=== PATIENT | male | born 1945 | race African-American/Black ===

== ENCOUNTER 2017-06-02 05:40 | Inpatient (IN) | payer MEDICARE, MEDICAID ==
[~2017-06-02] VITALS: Ht 172.7 cm; Wt 89.8 kg
[~2017-06-02 05:40] MED LIST: ACET-2178 PO; AMA1; AMLO10TA80 PO; ATOR10TA69 PO; BENA20TA3 PO; BRIM15DR2 BOTHEYE; CLON0.1T PO; DOCU-138 PO; HYDR-4134 PO; INSU100I19 SUBCUT/PO; LOV40 SQ; METF500C; NEPVIT PO; OMEP20CA4; PROT40 PO; RENAGEL PO; TIMO15DR12 BOTHEYE; XALAO EACHEYE
[2017-06-02] MEDS ORDERED: SODIUM CHLORIDE 0.9% 1,000 ML IV ONE (06:17)
[2017-06-02 11:18] LABS: HEMATOCRIT. 27.3 % (42.0-52.0); HEMOGLOBIN. 8.4 g/dL (14.0-18.0); MEAN CORPUSCULAR HEMOGLOBIN 23.6 pg (28.0-32.0); MEAN CORPUSCULAR VOLUME 76.5 fL (80.0-94.0); MEAN PLATELET VOLUME 8.1 fl (7.4-10.4); PLATELET 349 x1000/uL (130-400); RED BLOOD CELL COUNT 3.57 mill/uL (4.7-6.1); RED CELL DISTRIBUTION WIDTH 19.9 % (11.6-14.6)
[2017-06-02 11:25] LABS: CARBON DIOXIDE 33 mEq/L (21-32); CHLORIDE 96 mEq/L (98-107)
[2017-06-02 11:32] LABS: BETA HYDROXYBUTYRATE 0.4 mMol/L (0.0-0.3); TROPONIN I < 0.02 ng/mL (0.00-0.04)
[2017-06-02 12:06] LABS: PLATELET ESTIMATE NORMAL
[2017-06-02] MEDS ORDERED: CEFTRIAXONE 1 G PREMIX 50 ML IV ONE (12:30)
[2017-06-02] MEDS ORDERED: AZITHROMYCIN 500 MG in DEXT 5% WATER 250 ML IV SCH (12:30)
[2017-06-02 16:30] VITALS: BP 130/71
[2017-06-02 16:45] VITALS: BP 130/71
[2017-06-02] MEDS ORDERED: CLONIDINE 0.1MG TABLET PO PRN (17:15)
[2017-06-02] MEDS ORDERED: ACETAMINOPHEN 325MG TABLET PO PRN (17:15)
[2017-06-02] MEDS ORDERED: ONDANSETRON HCL 4MG/2ML VIAL IV PRN (17:15)
[2017-06-02] MEDS ORDERED: DIPHENHYDRAMINE 50MG/ML VIAL IV PRN (17:15)
[2017-06-02] MEDS ORDERED: MAGNESIUM/ALUMINUM HYDROXIDE/SIMETHICONE 30ML UDC PO PRN (17:15)
[2017-06-02] MEDS ORDERED: POTASSIUM CHLORIDE 20MEQ TABLET SR PO NR (17:15)
[2017-06-02] MEDS ORDERED: DEXTROSE 50% WATER 50ML SYRINGE IV PRN (17:15)
[2017-06-02] MEDS ORDERED: IPRATROPIUM/ALBUTEROL 0.5-3(2.5)MG/3ML NEB INH PRN (17:15)
[2017-06-02] MEDS: BLOOD SUGAR DIAGNOSTIC STRIP TEST SCH ×2 (17:40→21:00)
[2017-06-02] MEDS: INSULIN LISPRO 100 UNITS/ML SUBCUT SCH ×2 (17:50→22:27)
[2017-06-02] MEDS ORDERED: VANCOMYCIN 1 G PREMIX 200 ML IV SCH (18:30)
[2017-06-02] MEDS ORDERED: POTASSIUM CHLORIDE 20MEQ/PACKET PO NR (19:55)
[2017-06-02 20:00] VITALS: BP 153/65
[2017-06-02] MEDS: PIPERACILLIN/TAZ 3.375G PREMIX 50 ML IV SCH (22:13)
[2017-06-02] MEDS: ATORVASTATIN CALCIUM 10MG TABLET PO SCH (22:14)
[2017-06-02] MEDS: CLONIDINE 0.1MG TABLET PO SCH (22:14)
[2017-06-02] MEDS: BENAZEPRIL 20MG TABLET PO SCH (22:14)
[2017-06-02] MEDS: LATANOPROST 0.005% OPHTH DROPS 2.5ML EACHEYE SCH (22:15)
[2017-06-02] MEDS: INSULIN DETEMIR UD 100 UNITS/ML SYR SUBCUT SCH (22:25)
[2017-06-02] MEDS: SODIUM CHLORIDE 0.9% INJ 3ML FLUSH IVF SCH (22:27)
[2017-06-02] MEDS: IPRATROPIUM/ALBUTEROL 0.5-3(2.5)MG/3ML NEB HHN SCH (23:53)
[2017-06-03] VITALS (8 sets, daily range): BP systolic 125–160; BP diastolic 60–76
[2017-06-03] MEDS: DEXTROSE 5% WATER 1,000 ML IV SCH ×2 (00:33→21:48)
[2017-06-03] MEDS: PIPERACILLIN/TAZ 3.375G PREMIX 50 ML IV SCH ×2 (05:23→15:20)
[2017-06-03] MEDS: SODIUM CHLORIDE 0.9% INJ 3ML FLUSH IVF SCH ×3 (05:23→22:45)
[2017-06-03] MEDS: OMEPRAZOLE 20MG CAPSULE EXTENDED RELEASE PO SCH (05:25)
[2017-06-03] MEDS: CLONIDINE 0.1MG TABLET PO SCH ×3 (05:25→22:45)
[2017-06-03 06:22] LABS: BASOPHILS % 0.3 % (0.0-2.0); EOSINOPHILS % 1.1 % (0.0-5.0); HEMATOCRIT. 26.7 % (42.0-52.0); HEMOGLOBIN. 8.3 g/dL (14.0-18.0); LYMPHOCYTES % 14.5 % (20.0-50.0); MEAN CORPUSCULAR HEMOGLOBIN 23.8 pg (28.0-32.0); MEAN CORPUSCULAR VOLUME 76.5 fL (80.0-94.0); MEAN PLATELET VOLUME 8.4 fl (7.4-10.4); MONOCYTES % 8.9 % (2.0-8.0); NEUTROPHILS % 75.2 % (40.0-76.0); PLATELET 350 x1000/uL (130-400); RED BLOOD CELL COUNT 3.49 mill/uL (4.7-6.1); RED CELL DISTRIBUTION WIDTH 19.9 % (11.6-14.6)
[2017-06-03] MEDS: BLOOD SUGAR DIAGNOSTIC STRIP TEST SCH ×4 (06:46→21:29)
[2017-06-03] MEDS: IPRATROPIUM/ALBUTEROL 0.5-3(2.5)MG/3ML NEB HHN SCH ×2 (07:55→16:43)
[2017-06-03] MEDS: FOLIC ACID/VITAMIN B COMP W-C TABLET PO SCH (09:00)
[2017-06-03] MEDS: AMLODIPINE 10MG TABLET PO SCH (09:00)
[2017-06-03] MEDS: BENAZEPRIL 20MG TABLET PO SCH ×2 (09:00→21:49)
[2017-06-03] MEDS: DOCUSATE SODIUM 100MG CAPSULE PO SCH ×2 (09:00→17:00)
[2017-06-03] MEDS: INSULIN LISPRO 100 UNITS/ML SUBCUT SCH ×4 (09:03→21:52)
[2017-06-03] MEDS ORDERED: VANCOMYCIN 1 G PREMIX 200 ML IV SCH (14:00)
[2017-06-03] MEDS: LATANOPROST 0.005% OPHTH DROPS 2.5ML EACHEYE SCH (21:48)
[2017-06-03] MEDS: ATORVASTATIN CALCIUM 10MG TABLET PO SCH (21:49)
[2017-06-03] MEDS: INSULIN DETEMIR UD 100 UNITS/ML SYR SUBCUT SCH (22:47)
[2017-06-03] MEDS: PIPERACILLIN/TAZ 2.25G PREMIX 50 ML IV SCH (23:29)
[2017-06-04] VITALS: BP 146/77
[2017-06-04] MEDS: IPRATROPIUM/ALBUTEROL 0.5-3(2.5)MG/3ML NEB HHN SCH ×2 (00:51→08:55)
[2017-06-04 04:00] VITALS: BP 153/71
[2017-06-04] MEDS: SODIUM CHLORIDE 0.9% INJ 3ML FLUSH IVF SCH ×3 (05:36→21:06)
[2017-06-04] MEDS: CLONIDINE 0.1MG TABLET PO SCH ×3 (05:36→18:40)
[2017-06-04] MEDS: PIPERACILLIN/TAZ 2.25G PREMIX 50 ML IV SCH ×3 (05:36→21:58)
[2017-06-04] MEDS: OMEPRAZOLE 20MG CAPSULE EXTENDED RELEASE PO SCH (07:20)
[2017-06-04] MEDS: BLOOD SUGAR DIAGNOSTIC STRIP TEST SCH ×4 (07:48→20:52)
[2017-06-04] MEDS: INSULIN LISPRO 100 UNITS/ML SUBCUT SCH ×4 (07:50→21:05)
[2017-06-04 08:00] VITALS: BP 164/81
[2017-06-04] MEDS: AMLODIPINE 10MG TABLET PO SCH (09:00)
[2017-06-04] MEDS: BENAZEPRIL 20MG TABLET PO SCH ×2 (09:00→20:52)
[2017-06-04] MEDS: FOLIC ACID/VITAMIN B COMP W-C TABLET PO SCH (09:00)
[2017-06-04] MEDS: DOCUSATE SODIUM 100MG CAPSULE PO SCH ×2 (09:00→18:40)
[2017-06-04 11:20] VITALS: BP 153/67
[2017-06-04] MEDS ORDERED: BACITRACIN 50,000 UNITS/VIAL ONE (12:12)
[2017-06-04] MEDS ORDERED: BACITRACIN ZINC 15GM TUBE TOP ONE (12:12)
[2017-06-04] MEDS ORDERED: NORMAL SALINE 0.9% 10 ML SYR ONE (12:12)
[2017-06-04] MEDS ORDERED: FENTANYL CITRATE/PF 50MCG/ML 2ML VIAL ONE (12:21)
[2017-06-04] MEDS ORDERED: MIDAZOLAM HCL 2 MG/2 ML VIAL ONE (12:21)
[2017-06-04] MEDS ORDERED: LIDOCAINE HCL 1% 20ML VIAL (Pyxis) INJ ONE (12:32)
[2017-06-04] MEDS ORDERED: ONDANSETRON HCL 4MG/2ML VIAL ONE (12:32)
[2017-06-04] MEDS ORDERED: PROPOFOL 200MG/20ML VIAL IV ONE (12:32)
[2017-06-04] MEDS ORDERED: DEXAMETHASONE 4MG/ML 1ML VIAL ONE (12:32)
[2017-06-04] MEDS ORDERED: HYDROMORPHONE HCL/PF 2MG/ML CPJ IV PRN (12:45)
[2017-06-04] MEDS ORDERED: MEPERIDINE HCL/PF 25MG/ML CPJ IV PRN (12:45)
[2017-06-04] MEDS ORDERED: LABETALOL HCL 20MG/4ML CARPUJECT IV PRN (12:45)
[2017-06-04] MEDS ORDERED: ONDANSETRON HCL 4MG/2ML VIAL IV PRN (12:45)
[2017-06-04] MEDS ORDERED: CEFAZOLIN 1000MG PREMIX 50 ML IV SCH (14:00)
[2017-06-04 16:20] VITALS: BP 160/75
[2017-06-04 16:54] LABS: HEMATOCRIT. 29.9 % (42.0-52.0); HEMOGLOBIN. 9.4 g/dL (14.0-18.0); MEAN CORPUSCULAR HEMOGLOBIN 24.1 pg (28.0-32.0); MEAN CORPUSCULAR VOLUME 76.8 fL (80.0-94.0); PLATELET 386 x1000/uL (130-400); RED BLOOD CELL COUNT 3.89 mill/uL (4.7-6.1); RED CELL DISTRIBUTION WIDTH 19.9 % (11.6-14.6)
[2017-06-04 18:30] LABS: PLATELET ESTIMATE NORMAL
[2017-06-04] MEDS: HYDROCODONE/ACETAMINOPHEN 10/325MG TABLET PO PRN (18:41)
[2017-06-04 20:37] VITALS: BP 165/75
[2017-06-04] MEDS: LATANOPROST 0.005% OPHTH DROPS 2.5ML EACHEYE SCH (20:51)
[2017-06-04] MEDS: CEFAZOLIN 1000MG PREMIX 50 ML IV SCH (20:51)
[2017-06-04] MEDS: ATORVASTATIN CALCIUM 10MG TABLET PO SCH (20:52)
[2017-06-04] MEDS ORDERED: EPOETIN ALFA 4000UNITS/ML VIAL SUBCUT SCH (21:00)
[2017-06-04] MEDS: INSULIN DETEMIR UD 100 UNITS/ML SYR SUBCUT SCH (21:05)
[2017-06-05] VITALS (7 sets, daily range): BP systolic 105–165; BP diastolic 32–86
[2017-06-05] MEDS: IPRATROPIUM/ALBUTEROL 0.5-3(2.5)MG/3ML NEB HHN SCH ×4 (00:33→21:26)
[2017-06-05] MEDS: CEFAZOLIN 1000MG PREMIX 50 ML IV SCH ×2 (03:54→12:19)
[2017-06-05] MEDS: CLONIDINE 0.1MG TABLET PO SCH ×3 (05:24→21:29)
[2017-06-05] MEDS: DEXTROSE 5% WATER 1,000 ML IV SCH (05:24)
[2017-06-05] MEDS: SODIUM CHLORIDE 0.9% INJ 3ML FLUSH IVF SCH ×3 (05:24→21:34)
[2017-06-05] MEDS: PIPERACILLIN/TAZ 2.25G PREMIX 50 ML IV SCH (05:24)
[2017-06-05] MEDS: OMEPRAZOLE 20MG CAPSULE EXTENDED RELEASE PO SCH (06:23)
[2017-06-05] MEDS: BLOOD SUGAR DIAGNOSTIC STRIP TEST SCH ×4 (06:23→21:19)
[2017-06-05 07:17] LABS: BASOPHILS % 0.2 % (0.0-2.0); EOSINOPHILS % 0.2 % (0.0-5.0); HEMATOCRIT. 28.1 % (42.0-52.0); HEMOGLOBIN. 8.7 g/dL (14.0-18.0); LYMPHOCYTES % 11.5 % (20.0-50.0); MEAN CORPUSCULAR VOLUME 77.8 fL (80.0-94.0); MEAN PLATELET VOLUME 8.4 fl (7.4-10.4); MONOCYTES % 6.4 % (2.0-8.0); NEUTROPHILS % 81.7 % (40.0-76.0); PLATELET 360 x1000/uL (130-400); RED BLOOD CELL COUNT 3.61 mill/uL (4.7-6.1); RED CELL DISTRIBUTION WIDTH 20.5 % (11.6-14.6)
[2017-06-05] MEDS: DOCUSATE SODIUM 100MG CAPSULE PO SCH ×2 (08:32→17:58)
[2017-06-05] MEDS: FOLIC ACID/VITAMIN B COMP W-C TABLET PO SCH (08:32)
[2017-06-05] MEDS: INSULIN LISPRO 100 UNITS/ML SUBCUT SCH ×4 (08:33→21:29)
[2017-06-05] MEDS: AMLODIPINE 10MG TABLET PO SCH (09:00)
[2017-06-05] MEDS: BENAZEPRIL 20MG TABLET PO SCH ×2 (09:00→21:30)
[2017-06-05] MEDS: HYDROCODONE/ACETAMINOPHEN 10/325MG TABLET PO PRN (12:20)
[2017-06-05] MEDS ORDERED: DILTIAZEM HCL 5MG/ML 5ML VIAL IV NR (16:30)
[2017-06-05] MEDS: LINEZOLID 600MG TABLET PO SCH (17:58)
[2017-06-05] MEDS ORDERED: MEROPENEM 500MG in NORMAL SALINE 50ML IV SCH (18:00)
[2017-06-05] MEDS: INSULIN DETEMIR UD 100 UNITS/ML SYR SUBCUT SCH (21:28)
[2017-06-05] MEDS: ATORVASTATIN CALCIUM 10MG TABLET PO SCH (21:29)
[2017-06-05] MEDS: DILTIAZEM HCL 90MG TABLET PO SCH (21:30)
[2017-06-05] MEDS: LATANOPROST 0.005% OPHTH DROPS 2.5ML EACHEYE SCH (21:30)
[2017-06-05] MEDS: MICONAZOLE NITRATE 2% OINT 71GM TOP SCH (21:30)
[2017-06-06 00:27] VITALS: BP 159/73
[2017-06-06] MEDS: AMIODARONE HCL 200 MG TABLET PO SCH ×3 (01:59→12:14)
[2017-06-06] MEDS: CLONIDINE 0.1MG TABLET PO SCH ×2 (05:49→13:17)
[2017-06-06] MEDS: SODIUM CHLORIDE 0.9% INJ 3ML FLUSH IVF SCH ×2 (05:49→13:17)
[2017-06-06] MEDS: DILTIAZEM HCL 90MG TABLET PO SCH ×2 (05:50→13:17)
[2017-06-06] MEDS: LINEZOLID 600MG TABLET PO SCH (05:50)
[2017-06-06] MEDS: HYDROCODONE/ACETAMINOPHEN 10/325MG TABLET PO PRN (05:51)
[2017-06-06] MEDS: BLOOD SUGAR DIAGNOSTIC STRIP TEST SCH ×2 (06:16→12:16)
[2017-06-06 06:26] LABS: BASOPHILS % 0.3 % (0.0-2.0); EOSINOPHILS % 1.3 % (0.0-5.0); HEMATOCRIT. 29.2 % (42.0-52.0); LYMPHOCYTES % 19.8 % (20.0-50.0); MEAN CORPUSCULAR HEMOGLOBIN 24.3 pg (28.0-32.0); MEAN CORPUSCULAR VOLUME 78.6 fL (80.0-94.0); MEAN PLATELET VOLUME 8.2 fl (7.4-10.4); MONOCYTES % 8.3 % (2.0-8.0); NEUTROPHILS % 70.3 % (40.0-76.0); PLATELET 357 x1000/uL (130-400); RED BLOOD CELL COUNT 3.72 mill/uL (4.7-6.1); RED CELL DISTRIBUTION WIDTH 20.1 % (11.6-14.6)
[2017-06-06] MEDS: OMEPRAZOLE 20MG CAPSULE EXTENDED RELEASE PO SCH (06:39)
[2017-06-06 06:40] VITALS: BP 165/78
[2017-06-06 08:05] VITALS: BP 172/84
[2017-06-06] MEDS: MICONAZOLE NITRATE 2% OINT 71GM TOP SCH (08:24)
[2017-06-06] MEDS: FOLIC ACID/VITAMIN B COMP W-C TABLET PO SCH (08:24)
[2017-06-06] MEDS: BENAZEPRIL 20MG TABLET PO SCH (08:24)
[2017-06-06] MEDS: INSULIN LISPRO 100 UNITS/ML SUBCUT SCH ×2 (08:24→13:17)
[2017-06-06] MEDS: DOCUSATE SODIUM 100MG CAPSULE PO SCH (08:24)
[2017-06-06] MEDS: IPRATROPIUM/ALBUTEROL 0.5-3(2.5)MG/3ML NEB HHN SCH ×2 (09:03→16:51)
[2017-06-06 12:08] VITALS: BP 152/69
[2017-06-06 16:06] VITALS: BP 145/71
[2017-06-06 16:55] VITALS: BP 145/71
== END 2017-06-06 17:20 | DRG 853 ==
LOC: ER 05:40 → 6WST 10:44 → EDBEDREQ 10:48 → ENRESERV 15:59
PROVIDERS: ADMIT Internal Medicine; ATTEND Internal Medicine
PROC: 30233N1 Transfusion of Nonautologous Red Blood Cells into Peripheral Vein, Percutaneous Approach (ICD-10-PCS; 2017-06-03)
PROC: 5A1D60Z (ICD-10-PCS; 2017-06-03)
PROC: 0Y6D0Z3 Detachment at Left Upper Leg, Low, Open Approach (ICD-10-PCS; principal; 2017-06-06)
PROC: 0HBMXZZ Excision of Right Foot Skin, External Approach (ICD-10-PCS; 2017-06-06)
DX: A41.9 Sepsis, unspecified organism (principal); E43 Unspecified severe protein-calorie malnutrition; J18.9 Pneumonia, unspecified organism; N18.6 End stage renal disease; E11.52 Type 2 diabetes mellitus with diabetic peripheral angiopathy with gangrene; I12.0 Hypertensive chronic kidney disease with stage 5 chronic kidney disease or end stage renal disease; I47.1 Supraventricular tachycardia; I48.91 Unspecified atrial fibrillation; F03.90 Unspecified dementia, unspecified severity, without behavioral disturbance, psychotic disturbance, mood disturbance, and anxiety; J44.0 Chronic obstructive pulmonary disease with (acute) lower respiratory infection; E87.1 Hypo-osmolality and hyponatremia; L97.329 Non-pressure chronic ulcer of left ankle with unspecified severity; L97.419 Non-pressure chronic ulcer of right heel and midfoot with unspecified severity; M86.8X7 Other osteomyelitis, ankle and foot; E11.22 Type 2 diabetes mellitus with diabetic chronic kidney disease; E11.65 Type 2 diabetes mellitus with hyperglycemia; E11.69 Type 2 diabetes mellitus with other specified complication; H54.0 Blindness, both eyes; E11.319 Type 2 diabetes mellitus with unspecified diabetic retinopathy without macular edema; D64.9 Anemia, unspecified; E11.40 Type 2 diabetes mellitus with diabetic neuropathy, unspecified; E11.621 Type 2 diabetes mellitus with foot ulcer; E78.00 Pure hypercholesterolemia, unspecified; E78.5 Hyperlipidemia, unspecified; H40.9 Unspecified glaucoma; L89.629 Pressure ulcer of left heel, unspecified stage; L97.529 Non-pressure chronic ulcer of other part of left foot with unspecified severity; Z72.0 Tobacco use; Z79.84 Long term (current) use of oral hypoglycemic drugs; Z79.4 Long term (current) use of insulin; Z79.899 Other long term (current) drug therapy; Z86.73 Personal history of transient ischemic attack (TIA), and cerebral infarction without residual deficits; Z99.2 Dependence on renal dialysis; Z82.49 Family history of ischemic heart disease and other diseases of the circulatory system; Z81.8 Family history of other mental and behavioral disorders; Z68.30 Body mass index [BMI] 30.0-30.9, adult; Z98.49 Cataract extraction status, unspecified eye
CPT/HCPCS: 36415; 71010; 80048; 80053; 80202; 82010; 82962; 83605; 83735; 84484; 85025; 86850; 86900; 86920; 87040; 87070; 87077; 87186; 87205; 88304; 88307; 88311; 93005; 93306; 94640; 94664; 96361; 96365; 96366; 96375; 99285; A4216; C1893; J0456; J0690; J0696; J0885; J1100; J1815; J2185; J2250; J2405; J2543; J2704; J3010; J3370; J3490; J7030; J7040; J7050; J7060; J7070; J7620; P9016

== ENCOUNTER 2017-12-02 16:21 | Inpatient (IN) | payer MEDICARE, MEDICAID ==
[~2017-12-02] VITALS: Ht 180.3 cm; Wt 71.7 kg
[2017-12-02] MEDS ORDERED: DEXTROSE 50% WATER 50ML SYRINGE IV ONE ×2 (17:09→17:45)
[2017-12-02] MEDS ORDERED: SODIUM CHLORIDE 0.9% 1000ML BAG (SEPSIS BOLUS) IV ONE (17:45)
[2017-12-02 18:29] LABS: HEMATOCRIT. 25.8 % (42.0-52.0); HEMOGLOBIN. 7.1 g/dL (14.0-18.0); MEAN CORPUSCULAR VOLUME 72.2 fL (80.0-94.0); MEAN PLATELET VOLUME 7.5 fl (7.4-10.4); PLATELET 502 x1000/uL (130-400); RED BLOOD CELL COUNT 3.57 mill/uL (4.7-6.1); RED CELL DISTRIBUTION WIDTH 20.9 % (11.6-14.6)
[2017-12-02 18:33] LABS: INR 1.3; PARTIAL THROMBOPLASTIN TIME 29.4 sec (23.4-31.0); PROTHROMBIN TIME 13.5 sec (9.4-11.6)
[2017-12-02 18:37] LABS: CHLORIDE 95 mEq/L (98-107)
[2017-12-02 18:43] LABS: TROPONIN I 0.06 ng/mL (0.00-0.04)
[2017-12-02 18:52] LABS: PLATELET ESTIMATE INCREASED
[2017-12-02] MEDS ORDERED: PIPERACILLIN/TAZ 3.375G PREMIX 50 ML IV ONE (20:00)
[2017-12-02] MEDS ORDERED: VANCOMYCIN 1 G PREMIX 200 ML IV SCH (20:00)
[2017-12-03] VITALS (9 sets, daily range): BP systolic 100–114; BP diastolic 54–58
[2017-12-03] MEDS ORDERED: ASCO500C6 PO (02:03)
[2017-12-03] MEDS ORDERED: BENA20TA3 PO (02:03)
[2017-12-03] MEDS ORDERED: HYDR-4094 PO (02:03)
[2017-12-03] MEDS ORDERED: LEVVL SQ (02:03)
[2017-12-03] MEDS ORDERED: EPOE40002 IJ (02:03)
[2017-12-03] MEDS ORDERED: DOCU-138 PO (02:03)
[2017-12-03] MEDS ORDERED: TRAZ-129 PO (02:03)
[2017-12-03] MEDS ORDERED: FAMO20TA8 PO (02:03)
[2017-12-03] MEDS ORDERED: ACET-2853 PO (02:03)
[2017-12-03] MEDS ORDERED: DEXTL PO (02:03)
[2017-12-03] MEDS ORDERED: SEVE800T8 PO (02:03)
[2017-12-03] MEDS ORDERED: DEXTROSE 50% WATER 50ML SYRINGE IV PRN (05:00)
[2017-12-03] MEDS ORDERED: GUAIFENESIN 200MG/10ML SUGAR FREE UDC PO PRN (05:00)
[2017-12-03] MEDS ORDERED: ZOSYN (PIPERACILLIN/TAZOBACTAM) XX SCH (05:00)
[2017-12-03] MEDS ORDERED: CLONIDINE 0.1MG TABLET PO PRN (05:45)
[2017-12-03] MEDS ORDERED: IPRATROPIUM/ALBUTEROL 0.5-3(2.5)MG/3ML NEB HHN PRN (05:45)
[2017-12-03] MEDS ORDERED: ACETAMINOPHEN 325MG TABLET PO PRN (05:45)
[2017-12-03] MEDS: BLOOD SUGAR DIAGNOSTIC STRIP TEST SCH ×4 (07:20→21:00)
[2017-12-03] MEDS: INSULIN LISPRO 100 UNITS/ML SUBCUT SCH ×4 (07:50→23:48)
[2017-12-03] MEDS: AMLODIPINE 10MG TABLET PO SCH (08:38)
[2017-12-03] MEDS: SEVELAMER CARBONATE 800 MG TABLET PO SCH ×3 (08:47→17:50)
[2017-12-03] MEDS: FOLIC ACID/VITAMIN B COMP W-C TABLET PO SCH (08:47)
[2017-12-03] MEDS: PIPERACILLIN/TAZ 2.25G PREMIX 50 ML IV SCH ×3 (09:01→22:50)
[2017-12-03] MEDS: ASCORBIC ACID 500 MG TABLET PO SCH (09:01)
[2017-12-03] MEDS: TIMOLOL MALEATE 0.5% OPHTH DROPS 5ML EACHEYE SCH ×2 (09:02→23:02)
[2017-12-03] MEDS: BRIMONIDINE 0.2% OPHTH DROPS 5ML BOTHEYE SCH ×2 (09:02→23:02)
[2017-12-03 13:18] LABS: PHOSPHORUS 1.3 mg/dL (2.5-4.9)
[2017-12-03] MEDS ORDERED: VANCOMYCIN 1 G PREMIX 200 ML IV NR (18:00)
[2017-12-03] MEDS ORDERED: EPOETIN ALFA 4000UNITS/ML VIAL SUBCUT NR (21:00)
[2017-12-03] MEDS: LATANOPROST 0.005% OPHTH DROPS 2.5ML EACHEYE SCH (23:03)
[2017-12-03] MEDS: TRAZODONE HCL 50MG TABLET PO SCH (23:04)
[2017-12-03] MEDS: FAMOTIDINE 20MG TABLET PO SCH (23:04)
[2017-12-03] MEDS: ATORVASTATIN CALCIUM 10MG TABLET PO SCH (23:04)
[2017-12-04] VITALS: BP 114/57
[2017-12-04] MEDS: PIPERACILLIN/TAZ 2.25G PREMIX 50 ML IV SCH ×3 (05:59→21:50)
[2017-12-04 06:00] VITALS: BP 125/53
[2017-12-04] MEDS: BLOOD SUGAR DIAGNOSTIC STRIP TEST SCH ×4 (06:52→21:54)
[2017-12-04 07:21] VITALS: BP 123/55
[2017-12-04] MEDS: AMLODIPINE 10MG TABLET PO SCH (09:25)
[2017-12-04] MEDS: SEVELAMER CARBONATE 800 MG TABLET PO SCH ×3 (09:25→17:40)
[2017-12-04] MEDS: ASCORBIC ACID 500 MG TABLET PO SCH (09:25)
[2017-12-04] MEDS: FOLIC ACID/VITAMIN B COMP W-C TABLET PO SCH (09:25)
[2017-12-04] MEDS: BRIMONIDINE 0.2% OPHTH DROPS 5ML BOTHEYE SCH ×2 (09:26→21:51)
[2017-12-04] MEDS: TIMOLOL MALEATE 0.5% OPHTH DROPS 5ML EACHEYE SCH ×2 (09:26→21:51)
[2017-12-04] MEDS: INSULIN LISPRO 100 UNITS/ML SUBCUT SCH ×4 (09:32→22:40)
[2017-12-04 11:36] VITALS: BP 126/60
[2017-12-04 13:30] LABS: BASOPHILS % 0.2 % (0.0-2.0); EOSINOPHILS % 0.6 % (0.0-5.0); HEMATOCRIT. 25.8 % (42.0-52.0); HEMOGLOBIN. 7.5 g/dL (14.0-18.0); MEAN CORPUSCULAR HEMOGLOBIN 21.7 pg (28.0-32.0); MEAN CORPUSCULAR VOLUME 74.7 fL (80.0-94.0); MEAN PLATELET VOLUME 7.5 fl (7.4-10.4); NEUTROPHILS % 83.2 % (40.0-76.0); PLATELET 483 x1000/uL (130-400); RED BLOOD CELL COUNT 3.46 mill/uL (4.7-6.1); RED CELL DISTRIBUTION WIDTH 21.3 % (11.6-14.6)
[2017-12-04 16:31] VITALS: BP 134/60
[2017-12-04 20:00] VITALS: BP 120/57
[2017-12-04] MEDS: ATORVASTATIN CALCIUM 10MG TABLET PO SCH (21:50)
[2017-12-04] MEDS: TRAZODONE HCL 50MG TABLET PO SCH (21:50)
[2017-12-04] MEDS: LATANOPROST 0.005% OPHTH DROPS 2.5ML EACHEYE SCH (21:50)
[2017-12-04] MEDS: FAMOTIDINE 20MG TABLET PO SCH (21:50)
[2017-12-05] VITALS (14 sets, daily range): BP systolic 104–124; BP diastolic 52–64
[2017-12-05] MEDS: INSULIN GLARGINE UD 100 UNITS/ML SYR SUBCUT SCH ×2 (00:07→21:36)
[2017-12-05] MEDS: BLOOD SUGAR DIAGNOSTIC STRIP TEST SCH ×4 (06:55→21:15)
[2017-12-05] MEDS: PIPERACILLIN/TAZ 2.25G PREMIX 50 ML IV SCH ×3 (06:58→23:44)
[2017-12-05 07:33] LABS: BASOPHILS % 0.3 % (0.0-2.0); EOSINOPHILS % 0.9 % (0.0-5.0); HEMATOCRIT. 24.4 % (42.0-52.0); HEMOGLOBIN. 7.1 g/dL (14.0-18.0); LYMPHOCYTES % 15.3 % (20.0-50.0); MEAN CORPUSCULAR HEMOGLOBIN 21.5 pg (28.0-32.0); MEAN CORPUSCULAR VOLUME 73.3 fL (80.0-94.0); MEAN PLATELET VOLUME 7.7 fl (7.4-10.4); MONOCYTES % 6.2 % (2.0-8.0); NEUTROPHILS % 77.3 % (40.0-76.0); PLATELET 476 x1000/uL (130-400); RED BLOOD CELL COUNT 3.32 mill/uL (4.7-6.1); RED CELL DISTRIBUTION WIDTH 21.3 % (11.6-14.6)
[2017-12-05] MEDS: SEVELAMER CARBONATE 800 MG TABLET PO SCH ×3 (08:36→18:25)
[2017-12-05] MEDS: FOLIC ACID/VITAMIN B COMP W-C TABLET PO SCH (08:36)
[2017-12-05] MEDS: AMLODIPINE 10MG TABLET PO SCH (08:37)
[2017-12-05] MEDS: ASCORBIC ACID 500 MG TABLET PO SCH (08:37)
[2017-12-05] MEDS: TIMOLOL MALEATE 0.5% OPHTH DROPS 5ML EACHEYE SCH ×2 (08:37→21:05)
[2017-12-05] MEDS: BRIMONIDINE 0.2% OPHTH DROPS 5ML BOTHEYE SCH ×2 (08:37→21:05)
[2017-12-05] MEDS: INSULIN LISPRO 100 UNITS/ML SUBCUT SCH ×4 (08:39→21:36)
[2017-12-05] MEDS ORDERED: PIPERACILLIN/TAZOBACTAM 2.25 G in DEXTROSE 5% WATER 50 ML IV SCH (16:00)
[2017-12-05 19:34] LABS: HEMATOCRIT 32.6 % (42.0-52.0); HEMOGLOBIN 10.1 g/dL (14.0-18.0)
[2017-12-05] MEDS ORDERED: VANCOMYCIN 1 G PREMIX 200 ML IV NR (21:00)
[2017-12-05] MEDS: LATANOPROST 0.005% OPHTH DROPS 2.5ML EACHEYE SCH (21:05)
[2017-12-05] MEDS: FAMOTIDINE 20MG TABLET PO SCH (21:05)
[2017-12-05] MEDS: ATORVASTATIN CALCIUM 10MG TABLET PO SCH (21:05)
[2017-12-05] MEDS: TRAZODONE HCL 50MG TABLET PO SCH (21:07)
[2017-12-05] MEDS: DEXT 5%/0.45% NACL 1000ML 1,000 ML IV SCH (23:45)
[2017-12-06 00:58] VITALS: BP 128/58
[2017-12-06 05:22] VITALS: BP 129/65
[2017-12-06] MEDS: BLOOD SUGAR DIAGNOSTIC STRIP TEST SCH ×4 (06:33→21:45)
[2017-12-06] MEDS: PIPERACILLIN/TAZ 2.25G PREMIX 50 ML IV SCH ×3 (06:33→21:44)
[2017-12-06] MEDS: SEVELAMER CARBONATE 800 MG TABLET PO SCH ×3 (07:50→17:50)
[2017-12-06 08:00] VITALS: BP 133/57
[2017-12-06] MEDS: FOLIC ACID/VITAMIN B COMP W-C TABLET PO SCH (08:16)
[2017-12-06] MEDS: AMLODIPINE 10MG TABLET PO SCH (08:16)
[2017-12-06] MEDS: ASCORBIC ACID 500 MG TABLET PO SCH (08:17)
[2017-12-06] MEDS: BRIMONIDINE 0.2% OPHTH DROPS 5ML BOTHEYE SCH ×2 (09:43→21:45)
[2017-12-06] MEDS: TIMOLOL MALEATE 0.5% OPHTH DROPS 5ML EACHEYE SCH ×2 (09:43→21:45)
[2017-12-06] MEDS: INSULIN LISPRO 100 UNITS/ML SUBCUT SCH ×4 (09:44→21:46)
[2017-12-06 10:25] LABS: BASOPHILS % 0.5 % (0.0-2.0); EOSINOPHILS % 0.6 % (0.0-5.0); HEMATOCRIT. 34.6 % (42.0-52.0); HEMOGLOBIN. 10.4 g/dL (14.0-18.0); LYMPHOCYTES % 16.2 % (20.0-50.0); MEAN CORPUSCULAR HEMOGLOBIN 22.6 pg (28.0-32.0); MEAN CORPUSCULAR VOLUME 75.2 fL (80.0-94.0); MEAN PLATELET VOLUME 7.8 fl (7.4-10.4); MONOCYTES % 6.8 % (2.0-8.0); NEUTROPHILS % 75.9 % (40.0-76.0); PLATELET 475 x1000/uL (130-400); RED CELL DISTRIBUTION WIDTH 20.2 % (11.6-14.6)
[2017-12-06 10:45] LABS: INR 1.3; PROTHROMBIN TIME 13.8 sec (9.4-11.6)
[2017-12-06] MEDS ORDERED: GENTAMICIN SULF 40MG/ML 2ML VIAL ONE (13:01)
[2017-12-06] MEDS ORDERED: BACITRACIN 50,000 UNITS/VIAL ONE (13:01)
[2017-12-06] MEDS ORDERED: NORMAL SALINE 0.9% 10 ML SYR ONE (13:01)
[2017-12-06] MEDS ORDERED: BACITRACIN ZINC 15GM TUBE TOP ONE (13:02)
[2017-12-06] MEDS ORDERED: BUPIVACAINE HCL/EPINEPHRINE/PF 0.5%/0.0005 10ML ONE (13:03)
[2017-12-06] MEDS: DEXT 5%/0.45% NACL 1000ML 1,000 ML IV SCH (13:20)
[2017-12-06] MEDS ORDERED: MIDAZOLAM HCL 2 MG/2 ML VIAL ONE (13:28)
[2017-12-06] MEDS ORDERED: DEXAMETHASONE 4MG/ML 1ML VIAL ONE (13:28)
[2017-12-06] MEDS ORDERED: PROPOFOL 200MG/20ML VIAL IV ONE (13:28)
[2017-12-06] MEDS ORDERED: FENTANYL CITRATE/PF 50MCG/ML 2ML VIAL ONE (13:28)
[2017-12-06] MEDS ORDERED: ONDANSETRON HCL 4MG/2ML VIAL ONE (13:28)
[2017-12-06] MEDS ORDERED: HYDROMORPHONE HCL/PF 2MG/ML CPJ IV PRN (14:15)
[2017-12-06] MEDS ORDERED: ONDANSETRON HCL 4MG/2ML VIAL IV PRN (14:15)
[2017-12-06] MEDS ORDERED: LABETALOL 5MG/ML SYR 20 MG/4 ML SYRINGE IV PRN (14:15)
[2017-12-06] MEDS ORDERED: MEPERIDINE HCL/PF 25MG/ML CPJ IV PRN (14:15)
[2017-12-06 18:54] LABS: BASOPHILS % 0.3 % (0.0-2.0); HEMATOCRIT. 33.3 % (42.0-52.0); HEMOGLOBIN. 10.1 g/dL (14.0-18.0); LYMPHOCYTES % 8.3 % (20.0-50.0); MEAN CORPUSCULAR HEMOGLOBIN 23.1 pg (28.0-32.0); MEAN CORPUSCULAR VOLUME 75.7 fL (80.0-94.0); MEAN PLATELET VOLUME 8.2 fl (7.4-10.4); MONOCYTES % 1.7 % (2.0-8.0); NEUTROPHILS % 89.7 % (40.0-76.0); PLATELET 551 x1000/uL (130-400); RED BLOOD CELL COUNT 4.39 mill/uL (4.7-6.1); RED CELL DISTRIBUTION WIDTH 20.2 % (11.6-14.6)
[2017-12-06 20:00] VITALS: BP 133/61
[2017-12-06] MEDS: TRAZODONE HCL 50MG TABLET PO SCH (21:44)
[2017-12-06] MEDS: FAMOTIDINE 20MG TABLET PO SCH (21:44)
[2017-12-06] MEDS: ATORVASTATIN CALCIUM 10MG TABLET PO SCH (21:44)
[2017-12-06] MEDS: LATANOPROST 0.005% OPHTH DROPS 2.5ML EACHEYE SCH (21:45)
[2017-12-06] MEDS: INSULIN GLARGINE UD 100 UNITS/ML SYR SUBCUT SCH (21:49)
[2017-12-07] VITALS (7 sets, daily range): BP systolic 129–151; BP diastolic 59–77
[2017-12-07] MEDS: BLOOD SUGAR DIAGNOSTIC STRIP TEST SCH ×4 (06:34→21:00)
[2017-12-07] MEDS: PIPERACILLIN/TAZ 2.25G PREMIX 50 ML IV SCH ×3 (06:34→22:05)
[2017-12-07] MEDS: DEXT 5%/0.45% NACL 1000ML 1,000 ML IV SCH (06:42)
[2017-12-07 07:08] LABS: BASOPHILS % 0.1 % (0.0-2.0); HEMATOCRIT. 32.9 % (42.0-52.0); HEMOGLOBIN. 10.2 g/dL (14.0-18.0); LYMPHOCYTES % 14.4 % (20.0-50.0); MEAN CORPUSCULAR HEMOGLOBIN 23.4 pg (28.0-32.0); MEAN CORPUSCULAR VOLUME 75.8 fL (80.0-94.0); MEAN PLATELET VOLUME 8.1 fl (7.4-10.4); MONOCYTES % 4.3 % (2.0-8.0); NEUTROPHILS % 81.2 % (40.0-76.0); PLATELET 539 x1000/uL (130-400); RED BLOOD CELL COUNT 4.34 mill/uL (4.7-6.1); RED CELL DISTRIBUTION WIDTH 20.1 % (11.6-14.6)
[2017-12-07 07:17] LABS: PHOSPHORUS 3.5 mg/dL (2.5-4.9)
[2017-12-07] MEDS: AMLODIPINE 10MG TABLET PO SCH (09:00)
[2017-12-07] MEDS: SEVELAMER CARBONATE 800 MG TABLET PO SCH ×3 (09:33→19:15)
[2017-12-07] MEDS: FOLIC ACID/VITAMIN B COMP W-C TABLET PO SCH (09:33)
[2017-12-07] MEDS: ASCORBIC ACID 500 MG TABLET PO SCH (09:35)
[2017-12-07] MEDS: TIMOLOL MALEATE 0.5% OPHTH DROPS 5ML EACHEYE SCH ×2 (09:35→22:05)
[2017-12-07] MEDS: BRIMONIDINE 0.2% OPHTH DROPS 5ML BOTHEYE SCH ×2 (09:36→22:06)
[2017-12-07] MEDS: INSULIN LISPRO 100 UNITS/ML SUBCUT SCH ×4 (09:41→22:07)
[2017-12-07] MEDS: HYDROCODONE/ACETAMINOPHEN 10/325MG TABLET PO PRN ×2 (13:01→22:49)
[2017-12-07] MEDS: FAMOTIDINE 20MG TABLET PO SCH (22:05)
[2017-12-07] MEDS: LATANOPROST 0.005% OPHTH DROPS 2.5ML EACHEYE SCH (22:05)
[2017-12-07] MEDS: TRAZODONE HCL 50MG TABLET PO SCH (22:05)
[2017-12-07] MEDS: ATORVASTATIN CALCIUM 10MG TABLET PO SCH (22:05)
[2017-12-07] MEDS: INSULIN GLARGINE UD 100 UNITS/ML SYR SUBCUT SCH (22:07)
[2017-12-08] VITALS: BP 130/66
[2017-12-08 04:00] VITALS: BP 144/73
[2017-12-08] MEDS: HYDROCODONE/ACETAMINOPHEN 10/325MG TABLET PO PRN (04:55)
[2017-12-08] MEDS: PIPERACILLIN/TAZ 2.25G PREMIX 50 ML IV SCH ×2 (06:11→13:04)
[2017-12-08] MEDS: BLOOD SUGAR DIAGNOSTIC STRIP TEST SCH ×4 (07:20→21:51)
[2017-12-08 08:00] VITALS: BP 148/70
[2017-12-08] MEDS: AMLODIPINE 10MG TABLET PO SCH (09:26)
[2017-12-08] MEDS: FOLIC ACID/VITAMIN B COMP W-C TABLET PO SCH (09:26)
[2017-12-08] MEDS: ASCORBIC ACID 500 MG TABLET PO SCH (09:26)
[2017-12-08] MEDS: TIMOLOL MALEATE 0.5% OPHTH DROPS 5ML EACHEYE SCH ×2 (09:26→21:47)
[2017-12-08] MEDS: BRIMONIDINE 0.2% OPHTH DROPS 5ML BOTHEYE SCH ×2 (09:26→21:47)
[2017-12-08] MEDS: SEVELAMER CARBONATE 800 MG TABLET PO SCH ×3 (09:26→17:20)
[2017-12-08] MEDS: INSULIN LISPRO 100 UNITS/ML SUBCUT SCH ×4 (09:28→21:51)
[2017-12-08 12:00] VITALS: BP 141/68
[2017-12-08 16:00] VITALS: BP 122/51
[2017-12-08 20:00] VITALS: BP 138/95
[2017-12-08] MEDS: TRAZODONE HCL 50MG TABLET PO SCH (21:47)
[2017-12-08] MEDS: ATORVASTATIN CALCIUM 10MG TABLET PO SCH (21:47)
[2017-12-08] MEDS: FAMOTIDINE 20MG TABLET PO SCH (21:47)
[2017-12-08] MEDS: LATANOPROST 0.005% OPHTH DROPS 2.5ML EACHEYE SCH (21:47)
[2017-12-08] MEDS ORDERED: INSULIN GLARGINE UD 100 UNITS/ML SYR SUBCUT SCH (22:00)
[2017-12-09] VITALS (7 sets, daily range): BP systolic 138–165; BP diastolic 64–72
[2017-12-09 07:37] LABS: BASOPHILS % 0.4 % (0.0-2.0); EOSINOPHILS % 2.4 % (0.0-5.0); HEMATOCRIT. 32.5 % (42.0-52.0); HEMOGLOBIN. 10.1 g/dL (14.0-18.0); LYMPHOCYTES % 31.1 % (20.0-50.0); MEAN CORPUSCULAR HEMOGLOBIN 23.4 pg (28.0-32.0); MEAN CORPUSCULAR VOLUME 75.7 fL (80.0-94.0); MEAN PLATELET VOLUME 8.5 fl (7.4-10.4); MONOCYTES % 6.4 % (2.0-8.0); NEUTROPHILS % 59.7 % (40.0-76.0); PLATELET 515 x1000/uL (130-400); RED BLOOD CELL COUNT 4.29 mill/uL (4.7-6.1); RED CELL DISTRIBUTION WIDTH 20.9 % (11.6-14.6)
[2017-12-09] MEDS: BLOOD SUGAR DIAGNOSTIC STRIP TEST SCH ×4 (09:37→21:24)
[2017-12-09] MEDS: SEVELAMER CARBONATE 800 MG TABLET PO SCH ×3 (09:37→18:03)
[2017-12-09] MEDS: TIMOLOL MALEATE 0.5% OPHTH DROPS 5ML EACHEYE SCH ×2 (09:39→21:24)
[2017-12-09] MEDS: FOLIC ACID/VITAMIN B COMP W-C TABLET PO SCH (09:39)
[2017-12-09] MEDS: BRIMONIDINE 0.2% OPHTH DROPS 5ML BOTHEYE SCH ×2 (09:39→21:24)
[2017-12-09] MEDS: ASCORBIC ACID 500 MG TABLET PO SCH (09:40)
[2017-12-09] MEDS: INSULIN LISPRO 100 UNITS/ML SUBCUT SCH ×4 (09:40→21:41)
[2017-12-09] MEDS: AMLODIPINE 10MG TABLET PO SCH (09:40)
[2017-12-09] MEDS: ATORVASTATIN CALCIUM 10MG TABLET PO SCH (21:23)
[2017-12-09] MEDS: TRAZODONE HCL 50MG TABLET PO SCH (21:23)
[2017-12-09] MEDS: FAMOTIDINE 20MG TABLET PO SCH (21:24)
[2017-12-09] MEDS: LATANOPROST 0.005% OPHTH DROPS 2.5ML EACHEYE SCH (21:24)
[2017-12-09] MEDS ORDERED: INSULIN GLARGINE UD 100 UNITS/ML SYR SUBCUT SCH (22:00)
[2017-12-09] MEDS ORDERED: CLONIDINE 0.1MG TABLET PO SCH (22:15)
[2017-12-10 08:18] LABS: A/G RATIO 0.4 (0.7-1.7); ALBUMIN 2.1 g/dL (2.9-4.4); ALPHA-1-GLOBULIN 0.5 g/dL (0.0-0.4); ALPHA-2-GLOBULIN 1.4 g/dL (0.4-1.0); BETA GLOBULIN 1.6 g/dL (0.7-1.3); GAMMA GLOBULINS 1.7 g/dL (0.4-1.8); GLOBULIN TOTAL 5.3 g/dL (2.2-3.9); M-SPIKE Not Observed g/dL (Not Observed); TOTAL PROTEIN SERUM 7.4 g/dL (6.0-8.5)
[2017-12-10] MEDS ORDERED: BENAZEPRIL 20MG TABLET PO SCH ×2 (09:00)
[2017-12-10] MEDS ORDERED: DOCUSATE SODIUM 100MG CAPSULE PO SCH (09:00)
[2017-12-10] MEDS ORDERED: HYDRALAZINE HCL 25MG TABLET PO SCH (09:00)
== END 2017-12-09 22:18 | DRG 853 ==
LOC: ER 16:21 → 6WST 20:16 → EDBEDREQ 20:32 → ENRESERV 22:26
PROVIDERS: ADMIT Internal Medicine; ATTEND Internal Medicine
PROC: 0Y6C0Z3 Detachment at Right Upper Leg, Low, Open Approach (ICD-10-PCS; principal; 2017-12-07)
DX: A41.02 Sepsis due to Methicillin resistant Staphylococcus aureus (principal); N18.6 End stage renal disease; E43 Unspecified severe protein-calorie malnutrition; G92 Toxic encephalopathy; I12.0 Hypertensive chronic kidney disease with stage 5 chronic kidney disease or end stage renal disease; E11.52 Type 2 diabetes mellitus with diabetic peripheral angiopathy with gangrene; L97.419 Non-pressure chronic ulcer of right heel and midfoot with unspecified severity; E11.21 Type 2 diabetes mellitus with diabetic nephropathy; E11.40 Type 2 diabetes mellitus with diabetic neuropathy, unspecified; D63.8 Anemia in other chronic diseases classified elsewhere; E11.319 Type 2 diabetes mellitus with unspecified diabetic retinopathy without macular edema; E11.621 Type 2 diabetes mellitus with foot ulcer; E11.649 Type 2 diabetes mellitus with hypoglycemia without coma; F03.90 Unspecified dementia, unspecified severity, without behavioral disturbance, psychotic disturbance, mood disturbance, and anxiety; R77.1 Abnormality of globulin; H40.9 Unspecified glaucoma; E11.43 Type 2 diabetes mellitus with diabetic autonomic (poly)neuropathy; Z79.4 Long term (current) use of insulin; Z89.612 Acquired absence of left leg above knee; Z89.512 Acquired absence of left leg below knee; Z87.891 Personal history of nicotine dependence; Z82.49 Family history of ischemic heart disease and other diseases of the circulatory system; Z79.899 Other long term (current) drug therapy; Z99.2 Dependence on renal dialysis; Z86.73 Personal history of transient ischemic attack (TIA), and cerebral infarction without residual deficits; Z98.49 Cataract extraction status, unspecified eye; H54.7 Unspecified visual loss
CPT/HCPCS: 36415; 70450; 71045; 80048; 80053; 80202; 82550; 82962; 83605; 83735; 83880; 84100; 84155; 84165; 84484; 85014; 85018; 85025; 85610; 85651; 85730; 86140; 86850; 86900; 86920; 87040; 87077; 93005; 93306; 96365; 96366; 96368; 99285; A4216; J0171; J0885; J1100; J1170; J1580; J1815; J2250; J2405; J2543; J2704; J3010; J3370; J3490; J7030; J7050; P9016

== ENCOUNTER → 2018-02-05 | Day surgery (SDC) | payer MEDICARE, MEDICAID ==
[~2018-02-05] VITALS: Ht 180.3 cm; Wt 72.0 kg
[~2018-02-05] MED LIST changes: -ACET-2178 PO; +ACET-2853 PO; +ASCO500C6 PO; +CEFAZOLIN 1000MG PREMIX 50 ML IV ONE; +DEXTL PO; +EPOE40002 IJ; +FAMO20TA8 PO; +HYDR-4094 PO; +IOHEXOL-300 100 ML BOTTLE ONE; +IOHEXOL-300 50 ML BOTTLE IV ONE; +LEVVL SQ; +LIDOCAINE HCL/PF 1% 10 MG/ML 5ML VIAL ONE; +SEVE800T8 PO; +SODIUM BICARBONATE 4% (2.4MEQ) 5ML VIAL IV ONE; +TRAZ-129 PO
[2018-02-05 09:30] VITALS: BP 132/53
[2018-02-05 09:35] VITALS: BP 143/60
[2018-02-05 09:40] VITALS: BP 138/55
[2018-02-05 09:44] VITALS: BP 141/57
== END | disposition home or self-care (01) ==
LOC: RAD 08:39
PROVIDERS: ATTEND Internal Medicine Hematology & Oncology
DX: I26.99 Other pulmonary embolism without acute cor pulmonale (principal); D63.8 Anemia in other chronic diseases classified elsewhere; I12.0 Hypertensive chronic kidney disease with stage 5 chronic kidney disease or end stage renal disease; N18.6 End stage renal disease; Z99.2 Dependence on renal dialysis; E11.22 Type 2 diabetes mellitus with diabetic chronic kidney disease; E11.65 Type 2 diabetes mellitus with hyperglycemia; E11.621 Type 2 diabetes mellitus with foot ulcer; E11.40 Type 2 diabetes mellitus with diabetic neuropathy, unspecified; E11.21 Type 2 diabetes mellitus with diabetic nephropathy; E11.51 Type 2 diabetes mellitus with diabetic peripheral angiopathy without gangrene; E11.39 Type 2 diabetes mellitus with other diabetic ophthalmic complication; H40.89 Other specified glaucoma; Z89.522 Acquired absence of left knee; Z86.73 Personal history of transient ischemic attack (TIA), and cerebral infarction without residual deficits; Z87.891 Personal history of nicotine dependence; Z79.899 Other long term (current) drug therapy
CPT/HCPCS: 37191; C1769; C1880; J1644; J3490; Q9967; J0690

== ENCOUNTER 2020-02-15 14:23 | Inpatient (IN) | payer MEDICARE, MEDICAID ==
[~2020-02-15] VITALS: Ht 109.2 cm; Wt 71.2 kg
[~2020-02-15 14:23] MED LIST changes: -ACET-2853 PO; +ACET650T37 PO; +BENA20TA10 PO; -BENA20TA3 PO; -CEFAZOLIN 1000MG PREMIX 50 ML IV ONE; -IOHEXOL-300 100 ML BOTTLE ONE; -IOHEXOL-300 50 ML BOTTLE IV ONE; -LIDOCAINE HCL/PF 1% 10 MG/ML 5ML VIAL ONE; -SODIUM BICARBONATE 4% (2.4MEQ) 5ML VIAL IV ONE; -TRAZ-129 PO; +TRAZ-251 PO
[2020-02-15] MEDS ORDERED: SODIUM CHLORIDE 0.9% 1000ML BAG (SEPSIS BOLUS) IV ONE (15:15)
[2020-02-15 15:59] LABS: BASOPHILS % 0.4 % (0.0-2.0); HEMATOCRIT. 38.8 % (42.0-52.0); LYMPHOCYTES % 18.3 % (20.0-50.0); MEAN CORPUSCULAR VOLUME 74.5 fL (80.0-94.0); MONOCYTES % 8.8 % (2.0-8.0); NEUTROPHILS % 72.5 % (40.0-76.0); PLATELET 198 x1000/uL (130-400); RED BLOOD CELL COUNT 5.21 mill/uL (4.7-6.1); RED CELL DISTRIBUTION WIDTH 18.2 % (11.6-14.6)
[2020-02-15 16:00] LABS: CHLORIDE 99 mEq/L (98-107)
[2020-02-15 16:44] LABS: CLARITY URINE TURBID (CLEAR); COLOR URINE DARK YELLOW (YELLOW); KETONES URINE NEGATIVE (NEGATIVE); LEUKOCYTE ESTERASE URINE 3+ (NEGATIVE); NITRITE URINE NEGATIVE (NEGATIVE); OCCULT BLOOD URINE 2+ (NEGATIVE); PROTEIN URINE 3+ (NEGATIVE); SPECIFIC GRAVITY URINE 1.014 (1.005-1.030); UROBILINOGEN URINE 0.2 E.U./dL (0.2-1.0)
[2020-02-15] MEDS ORDERED: ACETAMINOPHEN 650MG/20.3ML UDC PO ONE (16:45)
[2020-02-15] MEDS ORDERED: LEVOFLOXACIN 500MG PREMIX 100 ML IV ONE (17:15)
[2020-02-15 17:35] LABS: BG BASE EXCESS -0.5 mmol/L (-2.0-2.0); BG DEOXYHEMOGLOBIN 0.8 % (0.0-5.0); BG FRACTION INSPIRED OXYGEN 28; BG HCO3 ACT 23.6 mmol/L (22.0-26.0); BG METHEMOGLOBIN 0.1 % (0.0-1.5); BG OXYGEN SATURATION 99.2 % (92.0-98.5); BG OXYHEMOGLOBIN 99.1 % (94.0-97.0); BG PCO2 36.4 mmHg (35.0-45.0); BG PH 7.429 (7.350-7.450); BG PO2 200.4 mmHg (75.0-100.0); BG SAMPLE SITE RIGHT RADIAL; BG TOTAL HEMOGLOBIN 10.9 g/dL (12.0-18.0); BG VENT MODE NASAL CANNULA
[2020-02-15] MEDS ORDERED: CLONIDINE 0.1MG TABLET PO PRN (18:30)
[2020-02-15] MEDS ORDERED: ONDANSETRON HCL 4MG/2ML INJ IV PRN (18:30)
[2020-02-15] MEDS ORDERED: HYDRALAZINE 20MG/ML VIAL IV PRN (18:30)
[2020-02-15] MEDS ORDERED: ENOXAPARIN 40MG/0.4ML SYR SUBCUT SCH (18:30)
[2020-02-15] MEDS ORDERED: CEFTRIAXONE 1 G PREMIX 50 ML IV SCH ×2 (18:30→19:00)
[2020-02-15] MEDS ORDERED: DIPHENHYDRAMINE 50MG/ML VIAL IV PRN (18:30)
[2020-02-15] MEDS ORDERED: LORAZEPAM 2MG/ML CPJ IV PRN (18:30)
[2020-02-15] MEDS: BLOOD SUGAR DIAGNOSTIC STRIP TEST SCH (19:04)
[2020-02-15] MEDS ORDERED: AZITHROMYCIN 500 MG in DEXT 5% WATER 250 ML IV SCH (19:30)
[2020-02-16] VITALS (7 sets, daily range): BP systolic 108–163; BP diastolic 60–78
[2020-02-16] MEDS ORDERED: INSULIN GLARGINE UD 100 UNITS/ML SYR SUBCUT SCH
[2020-02-16] MEDS ORDERED: CEFTRIAXONE 1,000 MG in DEXTROSE 5% WATER 50 ML IV SCH ×2
[2020-02-16] MEDS: ACETAMINOPHEN 325MG TABLET PO PRN ×3 (05:09→21:47)
[2020-02-16] MEDS: SODIUM CHLORIDE 0.9% INJ 3ML FLUSH IVF SCH ×2 (05:35→13:14)
[2020-02-16] MEDS: INSULIN LISPRO 100 UNITS/ML SUBCUT SCH ×4 (06:24→21:00)
[2020-02-16] MEDS: BLOOD SUGAR DIAGNOSTIC STRIP TEST SCH ×4 (06:25→21:37)
[2020-02-16 07:27] LABS: BASOPHILS % 0.5 % (0.0-2.0); EOSINOPHILS % 0.1 % (0.0-5.0); HEMATOCRIT. 33.9 % (42.0-52.0); HEMOGLOBIN. 10.7 g/dL (14.0-18.0); LYMPHOCYTES % 11.1 % (20.0-50.0); MEAN CORPUSCULAR HEMOGLOBIN 23.2 pg (28.0-32.0); MEAN CORPUSCULAR VOLUME 73.8 fL (80.0-94.0); MEAN PLATELET VOLUME 9.7 fl (7.4-10.4); MONOCYTES % 6.9 % (2.0-8.0); NEUTROPHILS % 81.4 % (40.0-76.0); PLATELET 172 x1000/uL (130-400); RED BLOOD CELL COUNT 4.59 mill/uL (4.7-6.1); RED CELL DISTRIBUTION WIDTH 18.2 % (11.6-14.6)
[2020-02-16 08:12] LABS: PHOSPHORUS 3.6 mg/dL (2.5-4.9)
[2020-02-16] MEDS: ENOXAPARIN 30MG/0.3ML SYR SUBCUT SCH (09:24)
[2020-02-16] MEDS: AMLODIPINE 10MG TABLET PO SCH (09:25)
[2020-02-16] MEDS ORDERED: PIPERACILLIN/TAZOBACTAM 2.25 G in DEXTROSE 5% WATER 50 ML IV SCH (11:30)
[2020-02-16] MEDS: PIPERACILLIN/TAZOBACTAM 2.25 G in DEXTROSE 5% WATER 50 ML IV SCH ×2 (14:00→15:30)
[2020-02-16] MEDS: AZITHROMYCIN 500 MG in DEXT 5% WATER 250 ML IV SCH (18:00)
[2020-02-16] MEDS: GUAIFENESIN 600MG ER TABLET PO SCH (21:47)
[2020-02-17] MEDS: PIPERACILLIN/TAZOBACTAM 2.25 G in DEXTROSE 5% WATER 50 ML IV SCH ×3 (00:03→15:51)
[2020-02-17] MEDS: SODIUM CHLORIDE 0.9% INJ 3ML FLUSH IVF SCH ×3 (00:04→21:59)
[2020-02-17 00:45] VITALS: BP 108/59
[2020-02-17] MEDS: INSULIN GLARGINE UD 100 UNITS/ML SYR SUBCUT SCH ×2 (01:34→21:55)
[2020-02-17 04:00] VITALS: BP 121/67
[2020-02-17] MEDS: BLOOD SUGAR DIAGNOSTIC STRIP TEST SCH ×4 (06:47→20:17)
[2020-02-17] MEDS: INSULIN LISPRO 100 UNITS/ML SUBCUT SCH ×4 (07:10→20:17)
[2020-02-17 08:00] VITALS: BP 109/56
[2020-02-17] MEDS: AMLODIPINE 10MG TABLET PO SCH (09:00)
[2020-02-17] MEDS: GUAIFENESIN 600MG ER TABLET PO SCH ×3 (09:19→20:20)
[2020-02-17] MEDS: ENOXAPARIN 30MG/0.3ML SYR SUBCUT SCH (09:19)
[2020-02-17 12:00] VITALS: BP 112/47
[2020-02-17 16:00] VITALS: BP 143/68
[2020-02-17] MEDS: AZITHROMYCIN 500 MG in DEXT 5% WATER 250 ML IV SCH (17:24)
[2020-02-17 20:00] VITALS: BP 126/64
[2020-02-17] MEDS: ACETAMINOPHEN 325MG TABLET PO PRN (22:24)
[2020-02-18] VITALS: BP 123/65
[2020-02-18] MEDS: PIPERACILLIN/TAZOBACTAM 2.25 G in DEXTROSE 5% WATER 50 ML IV SCH ×3 (00:02→16:00)
[2020-02-18 04:00] VITALS: BP 124/61
[2020-02-18] MEDS: DEXTROSE 50% WATER 50ML SYRINGE IV PRN ×3 (05:51→22:16)
[2020-02-18] MEDS: BLOOD SUGAR DIAGNOSTIC STRIP TEST SCH ×4 (06:10→21:00)
[2020-02-18] MEDS: INSULIN LISPRO 100 UNITS/ML SUBCUT SCH ×4 (06:10→21:00)
[2020-02-18] MEDS: SODIUM CHLORIDE 0.9% INJ 3ML FLUSH IVF SCH ×3 (06:10→21:58)
[2020-02-18 08:00] VITALS: BP 90/54
[2020-02-18] MEDS: AMLODIPINE 10MG TABLET PO SCH (09:00)
[2020-02-18] MEDS: ENOXAPARIN 30MG/0.3ML SYR SUBCUT SCH (09:51)
[2020-02-18] MEDS: GUAIFENESIN 600MG ER TABLET PO SCH ×2 (09:54→21:58)
[2020-02-18 12:00] VITALS: BP 106/78
[2020-02-18 16:00] VITALS: BP 127/64
[2020-02-18] MEDS: AZITHROMYCIN 500 MG in DEXT 5% WATER 250 ML IV SCH (18:06)
[2020-02-18 20:00] VITALS: BP 119/55
[2020-02-18] MEDS: INSULIN GLARGINE UD 100 UNITS/ML SYR SUBCUT SCH (22:00)
[2020-02-19] VITALS: BP 121/50
[2020-02-19] MEDS: PIPERACILLIN/TAZOBACTAM 2.25 G in DEXTROSE 5% WATER 50 ML IV SCH ×4 (00:43→23:50)
[2020-02-19 04:00] VITALS: BP 116/55
[2020-02-19] MEDS: BLOOD SUGAR DIAGNOSTIC STRIP TEST SCH ×4 (06:07→21:00)
[2020-02-19] MEDS: SODIUM CHLORIDE 0.9% INJ 3ML FLUSH IVF SCH ×3 (06:08→22:36)
[2020-02-19 06:49] LABS: BASOPHILS % 0.6 % (0.0-2.0); EOSINOPHILS % 0.7 % (0.0-5.0); HEMATOCRIT. 35.3 % (42.0-52.0); HEMOGLOBIN. 11.2 g/dL (14.0-18.0); MEAN CORPUSCULAR HEMOGLOBIN 23.1 pg (28.0-32.0); MEAN CORPUSCULAR VOLUME 72.7 fL (80.0-94.0); MEAN PLATELET VOLUME 9.7 fl (7.4-10.4); MONOCYTES % 4.8 % (2.0-8.0); NEUTROPHILS % 73.9 % (40.0-76.0); PLATELET 219 x1000/uL (130-400); RED BLOOD CELL COUNT 4.86 mill/uL (4.7-6.1); RED CELL DISTRIBUTION WIDTH 18.2 % (11.6-14.6)
[2020-02-19] MEDS: INSULIN LISPRO 100 UNITS/ML SUBCUT SCH ×4 (07:10→22:48)
[2020-02-19] MEDS: AMLODIPINE 10MG TABLET PO SCH ×2 (09:00→10:02)
[2020-02-19] MEDS: GUAIFENESIN 600MG ER TABLET PO SCH ×2 (10:02→22:48)
[2020-02-19] MEDS: ENOXAPARIN 30MG/0.3ML SYR SUBCUT SCH (10:03)
[2020-02-19 12:00] VITALS: BP 119/54
[2020-02-19 16:00] VITALS: BP 112/56
[2020-02-19 20:00] VITALS: BP 140/67
[2020-02-19] MEDS: AZITHROMYCIN 500 MG in DEXT 5% WATER 250 ML IV SCH (20:39)
[2020-02-19] MEDS: INSULIN GLARGINE UD 100 UNITS/ML SYR SUBCUT SCH (22:50)
[2020-02-20] VITALS: BP 121/83
[2020-02-20 04:00] VITALS: BP 111/66
[2020-02-20] MEDS: BLOOD SUGAR DIAGNOSTIC STRIP TEST SCH ×4 (06:23→21:10)
[2020-02-20] MEDS: SODIUM CHLORIDE 0.9% INJ 3ML FLUSH IVF SCH ×3 (06:23→21:11)
[2020-02-20] MEDS: INSULIN LISPRO 100 UNITS/ML SUBCUT SCH ×5 (06:24→21:18)
[2020-02-20 08:00] VITALS: BP 112/62
[2020-02-20] MEDS: AMLODIPINE 10MG TABLET PO SCH (09:00)
[2020-02-20] MEDS: PIPERACILLIN/TAZOBACTAM 2.25 G in DEXTROSE 5% WATER 50 ML IV SCH ×3 (09:45→23:43)
[2020-02-20] MEDS: GUAIFENESIN 600MG ER TABLET PO SCH ×2 (09:46→21:17)
[2020-02-20] MEDS: POTASSIUM CHLORIDE 20MEQ/PACKET NG SCH (09:46)
[2020-02-20] MEDS: ENOXAPARIN 30MG/0.3ML SYR SUBCUT SCH (09:50)
[2020-02-20 12:00] VITALS: BP 123/63
[2020-02-20 16:00] VITALS: BP 115/70
[2020-02-20] MEDS ORDERED: LOPERAMIDE 2MG/15ML UDC NG PRN (16:00)
[2020-02-20] MEDS ORDERED: LOPERAMIDE HCL 1 MG/7.5 ML 240ML BOTTLE NG PRN (17:07)
[2020-02-20 20:00] VITALS: BP 101/67
[2020-02-20] MEDS: INSULIN GLARGINE UD 100 UNITS/ML SYR SUBCUT SCH (21:42)
[2020-02-21] VITALS (48 sets, daily range): BP systolic 73–128; BP diastolic 43–84
[2020-02-21] MEDS: SODIUM CHLORIDE 0.9% INJ 3ML FLUSH IVF SCH ×3 (05:25→22:22)
[2020-02-21] MEDS: BLOOD SUGAR DIAGNOSTIC STRIP TEST SCH ×4 (06:31→21:00)
[2020-02-21] MEDS: INSULIN LISPRO 100 UNITS/ML SUBCUT SCH ×4 (06:35→22:00)
[2020-02-21] MEDS: ENOXAPARIN 30MG/0.3ML SYR SUBCUT SCH (09:00)
[2020-02-21] MEDS: AMLODIPINE 10MG TABLET PO SCH (09:00)
[2020-02-21] MEDS: POTASSIUM CHLORIDE 20MEQ/PACKET NG SCH (09:00)
[2020-02-21] MEDS: PIPERACILLIN/TAZOBACTAM 2.25 G in DEXTROSE 5% WATER 50 ML IV SCH ×2 (09:54→17:00)
[2020-02-21] MEDS: GUAIFENESIN 600MG ER TABLET PO SCH ×2 (09:54→21:59)
[2020-02-21] MEDS ORDERED: HETASTARCH/NORMAL SALINE 500 ML PLAST..BAG IV NR (10:30)
[2020-02-21] MEDS ORDERED: NOREPINEPHRINE 4 MG in DEXT 5% WATER 246 ML IV PRN (10:30)
[2020-02-21] MEDS: DILTIAZEM HCL 125 MG in DEXT 5% WATER 100 ML IV PRN ×2 (13:20→22:56)
[2020-02-21] MEDS ORDERED: PHENYLEPHRINE 40 MG in DEXT 5% WATER 246 ML IV PRN (13:30)
[2020-02-21] MEDS: ENOXAPARIN 80MG/0.8ML SYR SUBCUT SCH (16:28)
[2020-02-21] MEDS ORDERED: SODIUM BICARBONATE 8.4% 1 MEQ/ML 50ML SYR IV NR (20:45)
[2020-02-21] MEDS: INSULIN GLARGINE UD 100 UNITS/ML SYR SUBCUT SCH (22:00)
[2020-02-22] VITALS (78 sets, daily range): BP systolic 88–139; BP diastolic 46–108
[2020-02-22] MEDS: PIPERACILLIN/TAZOBACTAM 2.25 G in DEXTROSE 5% WATER 50 ML IV SCH ×3 (02:14→16:11)
[2020-02-22 04:52] LABS: BASOPHILS % 0.7 % (0.0-2.0); EOSINOPHILS % 2.3 % (0.0-5.0); HEMOGLOBIN. 10.1 g/dL (14.0-18.0); LYMPHOCYTES % 21.3 % (20.0-50.0); MEAN CORPUSCULAR HEMOGLOBIN 23.1 pg (28.0-32.0); MEAN CORPUSCULAR VOLUME 72.9 fL (80.0-94.0); MEAN PLATELET VOLUME 9.6 fl (7.4-10.4); MONOCYTES % 7.8 % (2.0-8.0); NEUTROPHILS % 67.9 % (40.0-76.0); PLATELET 222 x1000/uL (130-400); RED BLOOD CELL COUNT 4.38 mill/uL (4.7-6.1); RED CELL DISTRIBUTION WIDTH 18.9 % (11.6-14.6)
[2020-02-22] MEDS: SODIUM CHLORIDE 0.9% INJ 3ML FLUSH IVF SCH ×3 (05:09→20:34)
[2020-02-22] MEDS: BLOOD SUGAR DIAGNOSTIC STRIP TEST SCH ×4 (06:01→20:33)
[2020-02-22] MEDS: INSULIN LISPRO 100 UNITS/ML SUBCUT SCH ×4 (06:01→20:33)
[2020-02-22] MEDS: POTASSIUM CHLORIDE 20MEQ/PACKET NG SCH (08:40)
[2020-02-22] MEDS: GUAIFENESIN 600MG ER TABLET PO SCH ×2 (08:40→20:33)
[2020-02-22] MEDS: ENOXAPARIN 80MG/0.8ML SYR SUBCUT SCH (08:41)
[2020-02-22] MEDS: AMLODIPINE 10MG TABLET PO SCH (08:41)
[2020-02-22] MEDS ORDERED: LIDOCAINE HCL 1% 20ML VIAL (Pyxis) INJ ONE (12:37)
[2020-02-22] MEDS: INSULIN GLARGINE UD 100 UNITS/ML SYR SUBCUT SCH (21:24)
[2020-02-23] VITALS (63 sets, daily range): BP systolic 90–159; BP diastolic 40–82
[2020-02-23] MEDS: DILTIAZEM HCL 125 MG in DEXT 5% WATER 100 ML IV PRN (00:05)
[2020-02-23 05:38] LABS: HEMATOCRIT 30.9 % (42.0-52.0); HEMOGLOBIN 9.8 g/dL (14.0-18.0); MEAN CORPUSCULAR HEMOGLOBIN 23.4 pg (28.0-32.0); PLATELET 190 x1000/uL (130-400); RED BLOOD CELL COUNT 4.18 mill/uL (4.7-6.1); RED CELL DISTRIBUTION WIDTH 18.4 % (11.6-14.6)
[2020-02-23] MEDS: BLOOD SUGAR DIAGNOSTIC STRIP TEST SCH ×4 (05:47→21:00)
[2020-02-23] MEDS: INSULIN LISPRO 100 UNITS/ML SUBCUT SCH ×4 (05:47→21:00)
[2020-02-23] MEDS: SODIUM CHLORIDE 0.9% INJ 3ML FLUSH IVF SCH ×3 (05:47→23:52)
[2020-02-23] MEDS: POTASSIUM CHLORIDE 20MEQ/PACKET NG SCH (08:18)
[2020-02-23] MEDS: AMLODIPINE 10MG TABLET PO SCH (08:18)
[2020-02-23] MEDS: GUAIFENESIN 600MG ER TABLET PO SCH ×2 (08:18→21:00)
[2020-02-23] MEDS: ENOXAPARIN 80MG/0.8ML SYR SUBCUT SCH (08:19)
[2020-02-23] MEDS: DILTIAZEM HCL 30MG TABLET PO SCH ×2 (12:07→17:39)
[2020-02-23] MEDS: INSULIN GLARGINE UD 100 UNITS/ML SYR SUBCUT SCH (22:00)
[2020-02-24] VITALS: BP_SYST 133; BP_SYST 159; BP_DIAS 59; BP_DIAS 79
[2020-02-24] MEDS: DILTIAZEM HCL 30MG TABLET PO SCH ×4 (00:01→17:37)
[2020-02-24 04:00] VITALS: BP 117/71
[2020-02-24] MEDS: BLOOD SUGAR DIAGNOSTIC STRIP TEST SCH ×4 (06:12→20:31)
[2020-02-24] MEDS: SODIUM CHLORIDE 0.9% INJ 3ML FLUSH IVF SCH ×3 (06:13→21:51)
[2020-02-24] MEDS: INSULIN LISPRO 100 UNITS/ML SUBCUT SCH ×4 (07:10→21:00)
[2020-02-24] MEDS: ENOXAPARIN 80MG/0.8ML SYR SUBCUT SCH (09:54)
[2020-02-24] MEDS: GUAIFENESIN 600MG ER TABLET PO SCH ×2 (09:54→20:20)
[2020-02-24] MEDS: POTASSIUM CHLORIDE 20MEQ/PACKET NG SCH (09:54)
[2020-02-24 10:09] LABS: QFT MITOGEN VALUE 0.44 IU/mL (.); QFT TB GOLD PLUS Indeterminate (Negative); QFT TB1 AG VALUE 0.08 IU/mL (.)
[2020-02-24 12:00] VITALS: BP 150/62
[2020-02-24 20:00] VITALS: BP 171/60
[2020-02-24] MEDS: DEXTROSE 50% WATER 50ML SYRINGE IV PRN (20:31)
[2020-02-24] MEDS: INSULIN GLARGINE UD 100 UNITS/ML SYR SUBCUT SCH (21:50)
[2020-02-25] VITALS (7 sets, daily range): BP systolic 129–169; BP diastolic 28–90
[2020-02-25] MEDS: DILTIAZEM HCL 30MG TABLET PO SCH ×4 (00:52→17:54)
[2020-02-25] MEDS: BLOOD SUGAR DIAGNOSTIC STRIP TEST SCH ×4 (05:41→20:52)
[2020-02-25] MEDS: SODIUM CHLORIDE 0.9% INJ 3ML FLUSH IVF SCH ×3 (05:41→22:20)
[2020-02-25 06:30] LABS: BASOPHILS % 0.6 % (0.0-2.0); HEMATOCRIT. 30.4 % (42.0-52.0); HEMOGLOBIN. 9.5 g/dL (14.0-18.0); MEAN CORPUSCULAR HEMOGLOBIN 23.1 pg (28.0-32.0); MEAN CORPUSCULAR VOLUME 74.1 fL (80.0-94.0); MEAN PLATELET VOLUME 8.8 fl (7.4-10.4); MONOCYTES % 6.1 % (2.0-8.0); NEUTROPHILS % 60.3 % (40.0-76.0); PLATELET 293 x1000/uL (130-400); RED BLOOD CELL COUNT 4.11 mill/uL (4.7-6.1); RED CELL DISTRIBUTION WIDTH 18.6 % (11.6-14.6)
[2020-02-25] MEDS: INSULIN LISPRO 100 UNITS/ML SUBCUT SCH ×4 (06:46→20:52)
[2020-02-25] MEDS: GUAIFENESIN 600MG ER TABLET PO SCH ×2 (09:17→20:36)
[2020-02-25] MEDS: POTASSIUM CHLORIDE 20MEQ/PACKET NG SCH (09:17)
[2020-02-25] MEDS: ENOXAPARIN 80MG/0.8ML SYR SUBCUT SCH (10:07)
[2020-02-25] MEDS: HYDRALAZINE HCL 25MG TABLET PO SCH ×2 (15:36→22:20)
[2020-02-25] MEDS: INSULIN GLARGINE UD 100 UNITS/ML SYR SUBCUT SCH (22:00)
[2020-02-26] VITALS: BP 163/71
[2020-02-26] MEDS: DILTIAZEM HCL 30MG TABLET PO SCH ×4 (00:54→17:42)
[2020-02-26 04:00] VITALS: BP 156/50
[2020-02-26] MEDS: DEXTROSE 50% WATER 50ML SYRINGE IV PRN (04:55)
[2020-02-26] MEDS: HYDRALAZINE HCL 25MG TABLET PO SCH ×2 (05:02→14:40)
[2020-02-26] MEDS: SODIUM CHLORIDE 0.9% INJ 3ML FLUSH IVF SCH ×2 (05:22→14:40)
[2020-02-26] MEDS: INSULIN LISPRO 100 UNITS/ML SUBCUT SCH ×3 (06:53→17:07)
[2020-02-26] MEDS: BLOOD SUGAR DIAGNOSTIC STRIP TEST SCH ×3 (06:53→17:07)
[2020-02-26 08:00] VITALS: BP 151/58
[2020-02-26] MEDS: POTASSIUM CHLORIDE 20MEQ/PACKET NG SCH (08:38)
[2020-02-26] MEDS: GUAIFENESIN 600MG ER TABLET PO SCH (08:38)
[2020-02-26] MEDS: ENOXAPARIN 80MG/0.8ML SYR SUBCUT SCH (08:39)
[2020-02-26 12:00] VITALS: BP 132/66
[2020-02-26 16:00] VITALS: BP 156/71
[2020-02-27] MEDS ORDERED: RIVAROXABAN 15 MG TABLET PO SCH (17:00)
== END 2020-02-26 18:18 | DRG 871 ==
LOC: ER 14:23 → EDBEDREQ 18:47 → EDBEDREQSVC 18:47 → 7EST 18:49 → EDBEDREQTM 18:51 → EDBEDREQ 18:51 → ENRESERV 23:42 → MICUSO 02-21 10:21 → 7EST 02-23 21:15
PROVIDERS: ADMIT Internal Medicine; ATTEND Internal Medicine
PROC: 5A1D70Z Performance of Urinary Filtration, Intermittent, Less than 6 Hours Per Day (ICD-10-PCS; 2020-02-15)
PROC: 5A1D70Z Performance of Urinary Filtration, Intermittent, Less than 6 Hours Per Day (ICD-10-PCS; 2020-02-18)
PROC: 5A1D70Z Performance of Urinary Filtration, Intermittent, Less than 6 Hours Per Day (ICD-10-PCS; 2020-02-19)
PROC: 5A1D70Z Performance of Urinary Filtration, Intermittent, Less than 6 Hours Per Day (ICD-10-PCS; 2020-02-20)
PROC: 5A1D70Z Performance of Urinary Filtration, Intermittent, Less than 6 Hours Per Day (ICD-10-PCS; 2020-02-21)
PROC: 05H933Z Insertion of Infusion Device into Right Brachial Vein, Percutaneous Approach (ICD-10-PCS; principal; 2020-02-22)
PROC: B54MZZA Ultrasonography of Right Upper Extremity Veins, Guidance (ICD-10-PCS; 2020-02-22)
PROC: 5A1D70Z Performance of Urinary Filtration, Intermittent, Less than 6 Hours Per Day (ICD-10-PCS; 2020-02-24)
DX: A41.89 Other specified sepsis (principal); U07.1 COVID-19; E43 Unspecified severe protein-calorie malnutrition; G92 Toxic encephalopathy; J12.89 Other viral pneumonia; J96.00 Acute respiratory failure, unspecified whether with hypoxia or hypercapnia; N18.6 End stage renal disease; I50.32 Chronic diastolic (congestive) heart failure; J44.0 Chronic obstructive pulmonary disease with (acute) lower respiratory infection; I13.2 Hypertensive heart and chronic kidney disease with heart failure and with stage 5 chronic kidney disease, or end stage renal disease; D64.9 Anemia, unspecified; E11.22 Type 2 diabetes mellitus with diabetic chronic kidney disease; E11.319 Type 2 diabetes mellitus with unspecified diabetic retinopathy without macular edema; E11.42 Type 2 diabetes mellitus with diabetic polyneuropathy; E78.00 Pure hypercholesterolemia, unspecified; R47.02 Dysphasia; E78.5 Hyperlipidemia, unspecified; F03.90 Unspecified dementia, unspecified severity, without behavioral disturbance, psychotic disturbance, mood disturbance, and anxiety; G40.909 Epilepsy, unspecified, not intractable, without status epilepticus; I48.0 Paroxysmal atrial fibrillation; L89.159 Pressure ulcer of sacral region, unspecified stage; Z79.01 Long term (current) use of anticoagulants; Z86.73 Personal history of transient ischemic attack (TIA), and cerebral infarction without residual deficits; Z87.891 Personal history of nicotine dependence; Z89.611 Acquired absence of right leg above knee; Z89.612 Acquired absence of left leg above knee; Z93.1 Gastrostomy status; Z99.2 Dependence on renal dialysis; Z98.42 Cataract extraction status, left eye; Z98.41 Cataract extraction status, right eye; Z68.29 Body mass index [BMI] 29.0-29.9, adult
CPT/HCPCS: 36415; 36600; 71045; 76937; 80048; 80053; 81003; 82375; 82805; 82962; 83036; 83605; 83735; 84100; 84145; 84484; 85025; 85027; 86480; 87635; 93005; 99291; C1725; J0456; J0696; J1200; J1650; J1815; J1956; J2543; J3490; J7030; J7060; U0003-CS